=== PATIENT | male | born 1970 | race Caucasian/White ===

== ENCOUNTER → 2025-01-04 | Outpatient (CLI) | payer MEDICAID, SELFPAY ==
--- NOTE | 2025-01-04 | XR_ITS ---
Examination: X-ray bone length study, scanogram Date and time: January 04, 2025 11:58 AM INDICATIONS: Preop right knee replacement TECHNIQUE AND FINDINGS: AP hips knees and ankles obtained with the marker device 3 views Left leg measures 5 mm shorter than the right leg, secondary to 5 mm shorter tibia-fibula length IMPRESSION: Left leg measures 5 mm shorter than the right leg
--- NOTE | 2025-01-04 | XR_ITS ---
Examination: Right knee 2 views Technique one AP lateral right knee 2 views INDICATIONS: Diagnosis unilateral right knee osteoarthritis, right knee pain years. FINDINGS: Advanced tricompartment osteoarthritis, including severe narrowing medial joint space No fracture Moderate knee effusion 13 mm ossified joint body suprapatellar joint space IMPRESSION: Advanced right knee tricompartment osteoarthritis
== END | disposition home or self-care (01) ==
LOC: CDIM 11:29
PROVIDERS: Referring Provider Orthopaedic Surgery; Visit Provider Orthopaedic Surgery
DX: M17.11 Unilateral primary osteoarthritis, right knee (principal); M89.28 Other disorders of bone development and growth, other site
CPT/HCPCS: 73560; 77073